=== PATIENT | male | born 1975 | race Caucasian/White ===

== ENCOUNTER 2019-11-29 18:11 | Emergency (ER) | payer OTHER ==
[~2019-11-29] VITALS: Ht 177.8 cm; Wt 75.0 kg
[2019-11-29 18:44] VITALS: BP 124/99
--- NOTE | 2019-11-29 19:35 | NUR ---
TASK RN: PT. WAS UP FOR D/C AFTER SHOULDER IMMOBILIZER IN PLACE. DR. MANCILLA DISCUSSED X-RAY WITH PT. PT. VERBALIZED UNDERSTANDING OF F/U WITH DR. ARENAS. SKIN PWD. NO DISTRESS NOTED. PT. REFUSED HOSP[facility] FOR D/C. PT. FAMILY OUT FRONT OF ER PICKING PT. UP FOR D/C.
== END 2019-11-29 19:38 | disposition home or self-care (01) ==
LOC: ED 18:46
DX: S43.004A Unspecified dislocation of right shoulder joint, initial encounter (principal); X58.XXXA Exposure to other specified factors, initial encounter; Y93.89 Activity, other specified; Y92.828 Other wilderness area as the place of occurrence of the external cause; Y99.8 Other external cause status
CPT/HCPCS: 23650; 99284; 99285